=== PATIENT | female | born 1975 | race Two or more races ===

== ENCOUNTER 2023-02-11 20:17 | Emergency (ER) | payer OTHER ==
[~2023-02-11] VITALS: Ht 157.5 cm; Wt 82.0 kg
[2023-02-12] MEDS ORDERED: IBUP-1456 PO (01:08)
[2023-02-12] MEDS ORDERED: CYCL-837 PO (01:08)
[2023-02-12 02:00] VITALS: BP 134/85
== END 2023-02-12 02:00 | disposition home or self-care (01) ==
LOC: ER 20:17
DX: S16.1XXA Strain of muscle, fascia and tendon at neck level, initial encounter (principal); S46.912A Strain of unspecified muscle, fascia and tendon at shoulder and upper arm level, left arm, initial encounter; S39.012A Strain of muscle, fascia and tendon of lower back, initial encounter; Z88.6 Allergy status to analgesic agent; V43.52XA Car driver injured in collision with other type car in traffic accident, initial encounter; Y93.89 Activity, other specified; Y92.410 Unspecified street and highway as the place of occurrence of the external cause; Y99.9 Unspecified external cause status
CPT/HCPCS: 70110; 72040; 72100; 73030

== ENCOUNTER 2023-10-25 16:49 | Emergency (ER) | payer OTHER ==
[~2023-10-25] VITALS: Ht 157.5 cm; Wt 80.6 kg
[~2023-10-25 16:49] MED LIST: CYCL-837 PO; IBUP-1456 PO
[2023-10-25 19:02] VITALS: BP 136/70; PULSE 71; RESP 18; TEMP 98.1; O2SAT 95
[2023-10-25] MEDS ORDERED: HYDR-4902 PO (19:47)
[2023-10-25] MEDS ORDERED: IBUP1TAB5 PO (19:47)
[2023-10-25] MEDS: DexAMETHasone SOD PHOS 10MG/1ML VIAL INJ IM ONE (20:28)
[2023-10-25] MEDS: KETOROLAC TROMETH 60MG/2ML VIAL IM ONE (20:29)
[2023-10-25] MEDS: HYDROcodone-ACET 5/325MG TAB PO ONE (20:29)
== END 2023-10-25 21:13 | disposition home or self-care (01) ==
LOC: ER 16:49
DX: S63.502A Unspecified sprain of left wrist, initial encounter (principal); Z79.1 Long term (current) use of non-steroidal anti-inflammatories (NSAID); Z79.899 Other long term (current) drug therapy; X50.1XXA Overexertion from prolonged static or awkward postures, initial encounter; Y93.89 Activity, other specified; Y92.89 Other specified places as the place of occurrence of the external cause; Y99.8 Other external cause status
CPT/HCPCS: 73110; 96372; 99284; J1100; J1885

== ENCOUNTER 2023-11-19 09:47 | Inpatient (IN) | payer OTHER ==
[~2023-11-19] VITALS: Ht 157.5 cm; Wt 82.6 kg
[~2023-11-19 09:47] MED LIST changes: +HYDR-4902 PO; +IBUP1TAB5 PO
[2023-11-19 10:43] LABS: Basophils # (auto) 0 10 ^3/uL (0-0.2); Basophils % (auto) 0.8 % (0.0-2.0); Eosinophils # (auto) 0.1 10 ^3/uL (0-0.8); Eosinophils % (auto) 1.7 % (0.0-7.0); Hematocrit 46.6 % (36.0-46.0); Hemoglobin 16.1 g/dL (12.2-16.2); Lymphocytes # (auto) 1.7 10 ^3/uL (0.4-5.4); Lymphocytes % (auto) 31.4 % (10.0-50.0); Mean Corpuscular Hemoglobin 30.1 pg (28.0-32.0); Mean Corpuscular Hgb Conc. 34.6 g/dL (32.0-36.0); Mean Corpuscular Volume 86.9 fL (80.0-100.0); Monocytes # (auto) 0.3 10 ^3/uL (0-1.3); Monocytes % (auto) 5.5 % (0.0-12.0); Neutrophils # (auto) 3.4 10 ^3/uL (1.6-8.6); Neutrophils % (auto) 60.6 % (37.0-80.0); Nucleated Red Blood Cells % 0.2 %; Red Blood Cells 5.37 10^6/uL (4.0-5.20); Red Cell Distribution Width 12.9 % (11.8-14.3); White Blood Cell 5.6 10^3/uL (4.4-10.8)
[2023-11-19 11:04] LABS: INR 0.96 (0.9-1.15); Partial Thromboplastin Time 29.9 SEC (24.5-34.5); Prothrombin Time 10.1 sec (9.3-11.8)
[2023-11-19 11:07] LABS: Alanine Aminotransferase 71 U/L (7-40); Albumin 4.5 g/dL (3.2-4.8); Alkaline Phosphatase 81 U/L (46-116); Anion Gap 6 (5-15); Aspartate Aminotransferase 43 U/L (13-40); BUN/Creatinine Ratio 17.8 (10.0-20.0); Bilirubin, Total 0.4 mg/dL (0.2-1.0); Blood Urea Nitrogen 13 mg/dL (9-23); Calcium 9.3 mg/dL (8.5-10.1); Carbon Dioxide 27 mmol/L (20-30); Chloride 106 mmol/L (98-107); Glucose 174 mg/dL (74-106); Potassium 4.5 mmol/L (3.5-5.1); Sodium 139 mmol/L (136-145); Total Protein 6.9 g/dL (5.7-8.2)
[2023-11-19] MEDS ORDERED: MORPHINE SULFATE INJ 2 MG/ml SYRG IV PRN (15:45)
[2023-11-19] MEDS ORDERED: NITROGLYCERIN 0.4 MG SL TAB SL PRN (15:45)
[2023-11-19] MEDS ORDERED: ONDANSETRON HCL 4 MG/2 ML VIAL IV PRN (15:45)
[2023-11-19] MEDS: SODIUM CHLORIDE 0.9% 1,000 ML IV SCH (15:45)
[2023-11-19] MEDS: ASPirin 81 mg TAB PO ONE (16:00)
[2023-11-19] MEDS: ENOXAPARIN SOD 100 MG/1 ML SYRINGE SC ONE (16:00)
[2023-11-19 16:01] LABS: Triglycerides 300 mg/dL (< 150)
[2023-11-19 16:02] LABS: LDL Cholesterol 223 mg/dL (< 100)
[2023-11-19 16:03] LABS: Cholesterol 325 mg/dL (< 200); HDL Cholesterol 62 mg/dL (40-59)
[2023-11-19 16:08] LABS: Amphetamine Screen, Urine Neg (NEGATIVE); Barbiturate Scree,Urine Neg (NEGATIVE); Benzodiazephine Screen, Urine Neg (NEGATIVE); Cannabinoid Screen, Urine Neg (NEGATIVE); Cocaine Screen, Urine Neg (NEGATIVE); Opiate Scree,Urine Neg (NEGATIVE); Phencyclidine Screen, Urine Neg (NEGATIVE)
[2023-11-19] MEDS: MAGNESIUM OXIDE 400 MG TAB PO ONE (16:15)
[2023-11-19] MEDS: CARVEDILOL 12.5 MG TAB PO ONE (16:15)
[2023-11-19 17:36] LABS: Urine Bacteria None Seen /hpf (None Seen)
[2023-11-19 17:48] VITALS: PULSE 69; RESP 18; O2SAT 99
[2023-11-19 17:58] LABS: Urine Blood Negative /uL (Negative); Urine Clarity Clear (Clear); Urine Color Light-Yellow (Yellow); Urine Mucus FEW (None Seen); Urine Protein, UAD Negative (Negative); Urine Specific Gravity 1.016 (1.001-1.035); Urine Urobilinogen Normal (Negative); Urine WBC 6 /hpf (0 - 5); Urine pH 5.5 (5.0-9.0)
[2023-11-19 19:30] VITALS: PULSE 72; RESP 18; O2SAT 95
[2023-11-19 21:00] VITALS: BP 117/72; PULSE 60; RESP 17; TEMP 97.4; O2SAT 100
[2023-11-19] MEDS: ATORVASTATIN 20 MG TAB PO SCH (21:52)
[2023-11-19] MEDS: CARVEDILOL 12.5 MG TAB PO SCH (23:41)
[2023-11-19 23:46] VITALS: PULSE 63; RESP 17; O2SAT 97
[2023-11-20] VITALS (8 sets, daily range): BP systolic 107–138; BP diastolic 64–80; PULSE 59–62; RESP 16–18; TEMP 97.4–98.9; O2SAT 97–100
[2023-11-20] MEDS ORDERED: ENOXAPARIN SOD 100 MG/1 ML SYRINGE SC ONE (06:21)
[2023-11-20] MEDS: ENOXAPARIN SOD 80 MG/0.8ML SYRINGE SC SCH (06:25)
[2023-11-20 06:35] LABS: Basophils # (auto) 0.1 10 ^3/uL (0-0.2); Basophils % (auto) 0.9 % (0.0-2.0); Eosinophils # (auto) 0.2 10 ^3/uL (0-0.8); Eosinophils % (auto) 2.6 % (0.0-7.0); Hemoglobin 14.1 g/dL (12.2-16.2); Lymphocytes % (auto) 49.9 % (10.0-50.0); Mean Corpuscular Hemoglobin 29.6 pg (28.0-32.0); Mean Corpuscular Hgb Conc. 34.4 g/dL (32.0-36.0); Monocytes # (auto) 0.5 10 ^3/uL (0-1.3); Monocytes % (auto) 8.4 % (0.0-12.0); Neutrophils # (auto) 2.3 10 ^3/uL (1.6-8.6); Neutrophils % (auto) 38.2 % (37.0-80.0); Nucleated Red Blood Cells % 0.2 %; Red Blood Cells 4.77 10^6/uL (4.0-5.20); Red Cell Distribution Width 12.6 % (11.8-14.3)
[2023-11-20 06:44] LABS: Alanine Aminotransferase 59 U/L (7-40); Albumin 3.9 g/dL (3.2-4.8); Alkaline Phosphatase 68 U/L (46-116); Anion Gap 7 (5-15); BUN/Creatinine Ratio 20.3 (10.0-20.0); Blood Urea Nitrogen 13 mg/dL (9-23); Calcium 8.9 mg/dL (8.5-10.1); Carbon Dioxide 25 mmol/L (20-30); Chloride 106 mmol/L (98-107); Glucose 134 mg/dL (74-106); Potassium 4.1 mmol/L (3.5-5.1); Sodium 138 mmol/L (136-145)
[2023-11-20 06:45] LABS: Aspartate Aminotransferase 33 U/L (13-40); Bilirubin, Total 0.6 mg/dL (0.2-1.0); Total Protein 5.8 g/dL (5.7-8.2)
[2023-11-20 07:09] LABS: Magnesium 2.3 mg/dL (1.6-2.6)
[2023-11-20] MEDS: ADENOSINE 70 MG in GIVE UN-DILUTED 0 ML IV STA (11:33)
[2023-11-20] MEDS: MAGNESIUM OXIDE 400 MG TAB PO SCH (14:31)
[2023-11-20] MEDS: ASPirin 81 mg TAB PO SCH (14:32)
[2023-11-20] MEDS: ACETAMINOPHEN 325 MG TAB PO PRN (14:37)
[2023-11-21 01:00] VITALS: BP 124/81; PULSE 60; RESP 14; TEMP 98.2; O2SAT 94
[2023-11-21 05:00] VITALS: BP 118/72; PULSE 56; RESP 14; TEMP 98.1; O2SAT 96
[2023-11-21 06:33] LABS: Basophils # (auto) 0.1 10 ^3/uL (0-0.2); Basophils % (auto) 0.9 % (0.0-2.0); Eosinophils # (auto) 0.1 10 ^3/uL (0-0.8); Eosinophils % (auto) 2.4 % (0.0-7.0); Hematocrit 41.9 % (36.0-46.0); Hemoglobin 14.4 g/dL (12.2-16.2); Lymphocytes # (auto) 2.8 10 ^3/uL (0.4-5.4); Lymphocytes % (auto) 50.9 % (10.0-50.0); Mean Corpuscular Hemoglobin 29.3 pg (28.0-32.0); Mean Corpuscular Hgb Conc. 34.2 g/dL (32.0-36.0); Mean Corpuscular Volume 85.5 fL (80.0-100.0); Monocytes # (auto) 0.5 10 ^3/uL (0-1.3); Monocytes % (auto) 8.3 % (0.0-12.0); Neutrophils # (auto) 2.1 10 ^3/uL (1.6-8.6); Neutrophils % (auto) 37.5 % (37.0-80.0); Nucleated Red Blood Cells % 0.1 %; Red Cell Distribution Width 12.7 % (11.8-14.3); White Blood Cell 5.5 10^3/uL (4.4-10.8)
[2023-11-21 06:52] LABS: Alanine Aminotransferase 59 U/L (7-40); Alkaline Phosphatase 70 U/L (46-116); Anion Gap 7 (5-15); Aspartate Aminotransferase 28 U/L (13-40); BUN/Creatinine Ratio 19.4 (10.0-20.0); Blood Urea Nitrogen 13 mg/dL (9-23); Calcium 9.2 mg/dL (8.7-10.4); Carbon Dioxide 24 mmol/L (20-30); Chloride 107 mmol/L (98-107); Glucose 137 mg/dL (74-106); Magnesium 2.3 mg/dL (1.6-2.6); Potassium 4.3 mmol/L (3.5-5.1); Sodium 138 mmol/L (136-145)
[2023-11-21 06:53] LABS: Bilirubin, Total 0.6 mg/dL (0.2-1.0); Total Protein 6.4 g/dL (5.7-8.2)
[2023-11-21 08:00] VITALS: BP 132/74; PULSE 59; PULSE 60; PULSE 62; RESP 16; RESP 18; TEMP 98.9; O2SAT 98
[2023-11-21 08:45] VITALS: BP 140/64; PULSE 62; RESP 18; TEMP 98.1; O2SAT 98
[2023-11-21] MEDS ORDERED: METO25TA36 PO (12:17)
[2023-11-21] MEDS ORDERED: ATOR-507 PO (12:19)
[2023-11-21 13:00] VITALS: BP 106/64; PULSE 65; RESP 18; TEMP 98.1; O2SAT 97
[2023-11-21 13:50] VITALS: BP 140/64; PULSE 62; TEMP 36.7; O2SAT 98
[2023-11-22 09:07] LABS: Hepatitis B Surface Antigen Negative (Negative)
[2023-11-22 09:28] LABS: Hepatitis C Antibody Negative (Negative)
== END 2023-11-21 16:08 | disposition home or self-care (01) | DRG 282 ==
LOC: EDBD 09:47 → ER 09:47 → TELE 15:40 → TELE-WESTW 22:28
PROVIDERS: ADMIT Nurse Practitioner Family; ATTEND Internal Medicine
DX: I47.10 Supraventricular tachycardia, unspecified (principal); I21.A1 Myocardial infarction type 2; E66.01 Morbid (severe) obesity due to excess calories; R73.9 Hyperglycemia, unspecified; E78.5 Hyperlipidemia, unspecified; I10 Essential (primary) hypertension; K76.0 Fatty (change of) liver, not elsewhere classified; Z79.899 Other long term (current) drug therapy; Z79.82 Long term (current) use of aspirin; Z83.3 Family history of diabetes mellitus; Z68.33 Body mass index [BMI] 33.0-33.9, adult
CPT/HCPCS: 36415; 71045; 76705; 78452; 80053; 80061; 80307; 80320; 81001; 81025; 83036; 83735; 83880; 84443; 84484; 85025; 85610; 85730; 86803; 87340; 93005; 93017; 93306; 96372; 99291; G0378; J0153